=== PATIENT | female | born 1945 | race Caucasian/White ===

== ENCOUNTER 2022-09-15 19:01 | Emergency (ER) | payer MEDICARE, OTHER ==
[~2022-09-15] VITALS: Ht 165.1 cm; Wt 80.7 kg
--- NOTE | 2022-09-15 19:08 | NUR ---
[id number] FROM [facility] FOR MECHANICAL SLIP AND FALL. NO LOC. [address] ON [address].
--- NOTE | 2022-09-15 20:30 | NUR ---
PT TO CT ACCOMPANIED BY TECH
--- NOTE | 2022-09-15 20:45 | NUR ---
PT RETURNED FROM CT
--- NOTE | 2022-09-15 21:10 | NUR ---
CALLED [facility] FOR TRANSPORT BACK TO FACILITY.
--- NOTE | 2022-09-15 21:25 | NUR ---
CALLED [facility] TO LET THEM KNOW PT IS STABLE FOR D/C AND RETURNING VIA [facility]. REPORT GIVEN TO MAURA.
[2022-09-15 22:04] VITALS: BP 121/69
--- NOTE | 2022-09-15 22:04 | NUR ---
REPORT GIVEN TO ADEN Sorensen/ [facility]
--- NOTE | 2022-09-15 22:07 | NUR ---
PT PICKED UP BY [facility] FOR DISCHARGE BACK TO FACILITY
== END 2022-09-15 22:07 ==
LOC: ER 19:15
DX: S09.8XXA Other specified injuries of head, initial encounter (principal); I10 Essential (primary) hypertension; F32.A Depression, unspecified; W01.0XXA Fall on same level from slipping, tripping and stumbling without subsequent striking against object, initial encounter; Y93.89 Activity, other specified; Y92.89 Other specified places as the place of occurrence of the external cause; Y99.8 Other external cause status
CPT/HCPCS: 70450-TC

== ENCOUNTER 2023-08-09 12:14 | Inpatient (IN) | payer MEDICARE, OTHER ==
[~2023-08-09] VITALS: Ht 162.6 cm; Wt 69.4 kg
[2023-08-09 12:59] LABS: BASOPHILS % (AUTO) 0.4 % (0.0-2.0); EOSINOPHILS # (AUTO) 0.1 K/uL (0.0-0.7); EOSINOPHILS % (AUTO) 1.1 % (0.0-6.0); HEMATOCRIT 44 % (33-45); HEMOGLOBIN 14.8 g/dL (11.5-14.8); LYMPHOCYTES # (AUTO) 1.1 K/uL (0.8-4.8); LYMPHOCYTES % (AUTO) 17.4 % (20.0-44.0); MEAN CORPUSCULAR HEMOGLOBIN 32 PG (26.0-33.0); MEAN CORPUSCULAR HGB CONC 34 g/dl (31.0-36.0); MEAN CORPUSCULAR VOLUME 94 fL (82-100); MONOCYTES # (AUTO) 0.8 K/uL (0.1-1.30); MONOCYTES % (AUTO) 11.9 % (2.0-12.0); NEUTROPHILS # (AUTO) 4.4 K/uL (1.8-8.9); NEUTROPHILS % (AUTO) 69.2 % (43.0-81.0); PLATELET COUNT (AUTO) 157 K/uL (150-450); RED BLOOD CELL COUNT(AUTO) 4.61 MIL/uL (4.0-5.2); WHITE BLOOD COUNT (AUTO) 6.3 K/uL (4.3-11.0)
[2023-08-09 13:23] LABS: LACTIC ACID 1.2 mmol/L (0.4-2.0)
[2023-08-09 13:37] LABS: CALCIUM, SERUM 9.3 mg/dL (8.5-10.1); CARBON DIOXIDE 32 mmol/L (21-32); CHLORIDE 100 mmol/L (98-107); CREATININE 1.1 mg/dL (0.6-1.3); GLUCOSE 118 mg/dL (74-106); POTASSIUM 2.9 mmol/L (3.5-5.1); SODIUM SERUM 140 mmol/L (136-145); UREA NITROGEN, BLOOD 43 mg/dL (7-18)
[2023-08-09 13:38] LABS: SERUM AMMONIA < 10 umol/L (11-32)
[2023-08-09 13:40] LABS: INR 1.17 (0.91-1.10); PROTHROMBIN TIME 11.9 SECS (9.2-11.1)
[2023-08-09 13:50] LABS: ALANINE AMINOTRANSFERASE 7 U/L (12-78); ALBUMIN 3.8 g/dL (3.4-5.0); ALCOHOL, BLOOD < 3 mg/dL (0-10); ALKALINE PHOSPHATASE 57 U/L (46-116); ASPARTATE AMINOTRANSFERASE 23 U/L (15-37); BILIRUBIN,DIRECT 0.3 mg/dL (0.0-0.2); BILIRUBIN,TOTAL 0.8 mg/dL (0.2-1.0); SALICYLATE 3.1 mg/dL (2.8-20.0); TOTAL PROTEIN, SERUM 8.1 g/dL (6.4-8.2)
[2023-08-09 13:52] LABS: ACETAMINOPHEN 0 ug/ml (10-30)
[2023-08-09] MEDS ORDERED: DOXE50CA4 PO (13:52)
[2023-08-09] MEDS ORDERED: CALC-168 PO (13:52)
[2023-08-09] MEDS ORDERED: MULT-213 PO (13:52)
[2023-08-09] MEDS ORDERED: FOLIC ACID PO (13:52)
[2023-08-09] MEDS ORDERED: OXYB5TAB16 PO (13:52)
[2023-08-09] MEDS ORDERED: DULO30CA52 PO (13:52)
[2023-08-09] MEDS ORDERED: MELA1TAB27 PO (13:52)
[2023-08-09] MEDS ORDERED: OLAN2.5T3 PO (13:52)
[2023-08-09] MEDS ORDERED: DOCU100C36 PO (13:52)
[2023-08-09] MEDS ORDERED: AMLO-213 PO (13:52)
[2023-08-09] MEDS ORDERED: LORA10TA7 PO (13:52)
[2023-08-09] MEDS ORDERED: DIVA125C5 PO (13:52)
[2023-08-09] MEDS ORDERED: ACET325T53 PO (13:52)
[2023-08-09 14:46] LABS: THYROID STIMULATING HORMONE 1.338 uIU/mL (0.358-3.74)
[2023-08-09 15:25] LABS: APPEARANCE,URINE Clear (CLEAR); BILIRUBIN,URINE SMALL (NEGATIVE); BLOOD, URINE Negative Ery/uL (NEGATIVE); COLOR,URINE YELLOW (YELLOW); KETONES,URINE Trace mg/dL (NEGATIVE); LEUKOCYTE ESTERASE ,URINE Negative (NEGATIVE); NITRITE, URINE Negative (NEGATIVE); PROTEIN,URINE 30 mg/dl (NEGATIVE); UGLUCOSE Negative (NEGATIVE); UROBILINOGEN,URINE 0.2 EU/dL (0.2)
[2023-08-09] MEDS ORDERED: Z GUARD REMEDY 4 OZ OINT TP PRN (15:30)
[2023-08-09] MEDS ORDERED: ONDANSETRON HCL/PF 4 MG/2 ML VIAL IVP PRN (15:30)
[2023-08-09] MEDS ORDERED: POTASSIUM CL. PREMIX PERIPHER. 50 ML IV SCH (15:30)
[2023-08-09] MEDS ORDERED: CEFTRIAXONE 1GM BAG (ER ONLY) 1 GM/50 ML PIGGYBACK IV SCH (15:30)
[2023-08-09 15:46] LABS: ADD URINE CULTURE YES; BACTERIA,URINE Rare /HPF (None Seen); RBC,URINE 0-2 /HPF (0-2); SQUAMOUS EPITHELIAL CELL,UR Few /HPF (None Seen); WBC,URINE 0-2 /HPF (0-3); YEAST,URINE Many /HPF (None Seen)
[2023-08-09 15:47] LABS: CALCIUM OXALATE CRYSTALS,UR Few /HPF (None Seen)
[2023-08-09] MEDS: IV NS 0.9% 1,000 ML BAG IV ONE (15:47)
[2023-08-09 15:50] LABS: AMPHETAMINE, URINE NEGATIVE (NEGATIVE); BARBITURATE, URINE NEGATIVE (NEGATIVE); BENZODIAZEPINE, URINE NEGATIVE (NEGATIVE); CANNABINOID, URINE NEGATIVE (NEGATIVE); COCCAINE, URINE NEGATIVE (NEGATIVE); OPIATE, URINE NEGATIVE (NEGATIVE); PHENCYCLIDINE SCREEN,URINE NEGATIVE (NEGATIVE)
[2023-08-09] MEDS: POTASSIUM CL. PREMIX PERIPHER. 50 ML IV SCH (17:05)
[2023-08-09] MEDS: IV D5/0.45 NACL 1,000 ML IV PRN (17:29)
[2023-08-09] MEDS: ENOXAPARIN SODIUM 40 MG/0.4 ML DISP.SYRIN SQ SCH (17:54)
[2023-08-09] MEDS: CEFTRIAXONE 1 G in IV D5W 50 ML IV SCH (19:50)
[2023-08-09 20:00] VITALS: BP 125/90; TEMP 97.7; O2SAT 98
[2023-08-10] VITALS: BP 133/71; TEMP 97.8; O2SAT 96
[2023-08-10 04:27] VITALS: O2SAT 96
[2023-08-10 06:44] LABS: BASOPHILS # (AUTO) 0.1 K/uL (0.0-0.2); BASOPHILS % (AUTO) 1.7 % (0.0-2.0); EOSINOPHILS # (AUTO) 0.2 K/uL (0.0-0.7); EOSINOPHILS % (AUTO) 3.4 % (0.0-6.0); HEMATOCRIT 43 % (33-45); HEMOGLOBIN 14.4 g/dL (11.5-14.8); LYMPHOCYTES # (AUTO) 1.2 K/uL (0.8-4.8); LYMPHOCYTES % (AUTO) 20.7 % (20.0-44.0); MEAN CORPUSCULAR HEMOGLOBIN 32 PG (26.0-33.0); MEAN CORPUSCULAR HGB CONC 33 g/dl (31.0-36.0); MEAN CORPUSCULAR VOLUME 96 fL (82-100); MONOCYTES # (AUTO) 0.6 K/uL (0.1-1.30); MONOCYTES % (AUTO) 9.9 % (2.0-12.0); NEUTROPHILS # (AUTO) 3.7 K/uL (1.8-8.9); NEUTROPHILS % (AUTO) 64.3 % (43.0-81.0); PLATELET COUNT (AUTO) 138 K/uL (150-450); RED BLOOD CELL COUNT(AUTO) 4.48 MIL/uL (4.0-5.2); RED CELL DISTRIBUTION WIDTH 14.1 % (11.5-15.0); WHITE BLOOD COUNT (AUTO) 5.7 K/uL (4.3-11.0)
[2023-08-10 06:49] LABS: CALCIUM, SERUM 9.2 mg/dL (8.5-10.1); CARBON DIOXIDE 34 mmol/L (21-32); CHLORIDE 103 mmol/L (98-107); CREATININE 0.8 mg/dL (0.6-1.3); GLUCOSE 90 mg/dL (74-106); MAGNESIUM 1.8 mg/dL (1.8-2.4); PHOSPHORUS 2.2 mg/dL (2.5-4.9); POTASSIUM 2.9 mmol/L (3.5-5.1); SODIUM SERUM 141 mmol/L (136-145); UREA NITROGEN, BLOOD 28 mg/dL (7-18)
[2023-08-10 08:00] VITALS: BP 130/112; TEMP 97.1; O2SAT 95
[2023-08-10] MEDS ORDERED: CEFTRIAXONE 1 G in IV D5W 50 ML IV SCH (09:00)
[2023-08-10] MEDS: NEOMY SULF/BACITRAC ZN/POLY 15 GM TUBE TP SCH (10:22)
[2023-08-10] MEDS: PANTOPRAZOLE 40 MG VIAL IV SCH (10:26)
[2023-08-10] MEDS: POTASSIUM CL. PREMIX PERIPHER. 50 ML IV SCH (11:58)
[2023-08-10 12:00] VITALS: BP 139/82; TEMP 97.9; O2SAT 98
[2023-08-10] MEDS: K PHOS NEUTRAL 250 MG TABLET PO ONE (15:37)
[2023-08-10 16:00] VITALS: BP 126/109; TEMP 97.9; O2SAT 95
[2023-08-10 20:00] VITALS: BP 97/56; TEMP 97.9; O2SAT 97
[2023-08-11] VITALS (9 sets, daily range): BP systolic 98–148; BP diastolic 68–82; TEMP 97.3–98.4; O2SAT 95–98
[2023-08-11 07:23] LABS: BASOPHILS # (AUTO) 0.1 K/uL (0.0-0.2); BASOPHILS % (AUTO) 1.5 % (0.0-2.0); EOSINOPHILS # (AUTO) 0.2 K/uL (0.0-0.7); EOSINOPHILS % (AUTO) 3.7 % (0.0-6.0); HEMATOCRIT 42 % (33-45); HEMOGLOBIN 14.1 g/dL (11.5-14.8); LYMPHOCYTES % (AUTO) 18.6 % (20.0-44.0); MEAN CORPUSCULAR HEMOGLOBIN 32 PG (26.0-33.0); MEAN CORPUSCULAR HGB CONC 34 g/dl (31.0-36.0); MEAN CORPUSCULAR VOLUME 95 fL (82-100); MONOCYTES # (AUTO) 0.6 K/uL (0.1-1.30); MONOCYTES % (AUTO) 11.6 % (2.0-12.0); NEUTROPHILS # (AUTO) 3.5 K/uL (1.8-8.9); NEUTROPHILS % (AUTO) 64.6 % (43.0-81.0); PLATELET COUNT (AUTO) 136 K/uL (150-450); RED BLOOD CELL COUNT(AUTO) 4.37 MIL/uL (4.0-5.2); RED CELL DISTRIBUTION WIDTH 13.6 % (11.5-15.0); WHITE BLOOD COUNT (AUTO) 5.5 K/uL (4.3-11.0)
[2023-08-11 08:20] LABS: ALBUMIN 3.1 g/dL (3.4-5.0); BILIRUBIN,TOTAL 0.5 mg/dL (0.2-1.0); CALCIUM, SERUM 8.9 mg/dL (8.5-10.1); CREATININE 0.8 mg/dL (0.6-1.3); MAGNESIUM 1.5 mg/dL (1.8-2.4); PHOSPHORUS 2.9 mg/dL (2.5-4.9); POTASSIUM 3.2 mmol/L (3.5-5.1); TOTAL PROTEIN, SERUM 7.3 g/dL (6.4-8.2)
[2023-08-11] MEDS: PANTOPRAZOLE 40 MG/PACK PACK PO SCH (08:48)
[2023-08-11] MEDS: POTASSIUM CHLORIDE 20 MEQ POWDER PACKET PO SCH (10:09)
[2023-08-11] MEDS: MAGNESIUM OXIDE 400 MG TABLET PO ONE (10:49)
[2023-08-12 07:03] LABS: BASOPHILS % (AUTO) 0.7 % (0.0-2.0); EOSINOPHILS # (AUTO) 0.2 K/uL (0.0-0.7); EOSINOPHILS % (AUTO) 5.5 % (0.0-6.0); HEMATOCRIT 41 % (33-45); HEMOGLOBIN 13.9 g/dL (11.5-14.8); LYMPHOCYTES # (AUTO) 0.9 K/uL (0.8-4.8); LYMPHOCYTES % (AUTO) 23.9 % (20.0-44.0); MEAN CORPUSCULAR HEMOGLOBIN 32 PG (26.0-33.0); MEAN CORPUSCULAR HGB CONC 34 g/dl (31.0-36.0); MEAN CORPUSCULAR VOLUME 95 fL (82-100); MONOCYTES # (AUTO) 0.5 K/uL (0.1-1.30); MONOCYTES % (AUTO) 12.8 % (2.0-12.0); NEUTROPHILS # (AUTO) 2.2 K/uL (1.8-8.9); NEUTROPHILS % (AUTO) 57.1 % (43.0-81.0); PLATELET COUNT (AUTO) 109 K/uL (150-450); WHITE BLOOD COUNT (AUTO) 3.9 K/uL (4.3-11.0)
[2023-08-12 07:10] LABS: CALCIUM, SERUM 9.4 mg/dL (8.5-10.1); CREATININE 0.8 mg/dL (0.6-1.3); MAGNESIUM 1.5 mg/dL (1.8-2.4); PHOSPHORUS 2.6 mg/dL (2.5-4.9); POTASSIUM 3.4 mmol/L (3.5-5.1)
[2023-08-12 07:30] VITALS: BP 146/83; TEMP 97.9; O2SAT 97
[2023-08-12 08:07] VITALS: O2SAT 98
[2023-08-12] MEDS: POTASSIUM CHLORIDE 20 MEQ POWDER PACKET PO SCH (09:44)
[2023-08-12] MEDS: MAGNESIUM OXIDE 400 MG TABLET PO ONE (09:44)
== END 2023-08-12 17:03 | DRG 689 ==
LOC: ER 12:26 → TELE 15:52 → MED 08-11 09:15
DX: N39.0 Urinary tract infection, site not specified (principal); G93.41 Metabolic encephalopathy; S51.811A Laceration without foreign body of right forearm, initial encounter; G62.9 Polyneuropathy, unspecified; E87.6 Hypokalemia; F31.9 Bipolar disorder, unspecified; I10 Essential (primary) hypertension; L89.026 Pressure-induced deep tissue damage of left elbow; R53.1 Weakness; S80.211A Abrasion, right knee, initial encounter; X58.XXXA Exposure to other specified factors, initial encounter; Y93.9 Activity, unspecified; Y92.89 Other specified places as the place of occurrence of the external cause; M19.90 Unspecified osteoarthritis, unspecified site; Z20.822 Contact with and (suspected) exposure to COVID-19; L89.156 Pressure-induced deep tissue damage of sacral region
CPT/HCPCS: 36415; 70450-TC; 71045-TC; 80048-TC; 80053-TC; 80076-TC; 81001; 82140-TC; 83605-TC; 83735-TC; 84100-TC; 84443-TC; 84484-TC; 85025-TC; 85730-TC; 87040-TC; 87086-TC; 92526; 92611-TC; 94761-TC; 94799-TC; 97110-TC; 97116-TC; 97530-TC; A4223; C9113; G0378; G0480; J0696; J1650; J3480; J3490; J7030; J7060